=== PATIENT | male | born 1990 | race Caucasian/White ===

== ENCOUNTER 2017-03-02 22:23 | Inpatient (IN) | payer MEDICAID, OTHER ==
[~2017-03-02] VITALS: Ht 182.9 cm; Wt 91.6 kg
[~2017-03-02 22:23] MED LIST: BENZ1TAB10 PO; FLUO-191 PO; HALO10 PO; MIRT15 PO; TRAZ-147 PO
[2017-03-03 09:47] VITALS: BP 131/68
[2017-03-03] MEDS ORDERED: LORazepam 2 MG TABLET PO PRN (14:15)
[2017-03-03 16:17] VITALS: BP 128/64
[2017-03-03] MEDS: OLANZapine 5 MG TABLET PO SCH (20:26)
[2017-03-03] MEDS: ZOLPIDEM TARTRATE 10 MG TABLET PO PRN (20:27)
[2017-03-04] VITALS: BP 128/64
[2017-03-04] MEDS ORDERED: ACETAMINOPHEN 325 MG TABLET PO PRN (06:45)
[2017-03-04] MEDS: FLUoxetine HCL 20 MG CAPSULE PO SCH (09:45)
[2017-03-04 16:29] VITALS: BP 116/66
[2017-03-04] MEDS: ZOLPIDEM TARTRATE 10 MG TABLET PO PRN (20:55)
[2017-03-04] MEDS: OLANZapine 5 MG TABLET PO SCH (20:55)
[2017-03-05] VITALS (8 sets, daily range): BP systolic 118–139; BP diastolic 60–80
[2017-03-05] MEDS: IBUPROFEN 400 MG TABLET PO PRN (01:18)
[2017-03-05] MEDS: FLUoxetine HCL 20 MG CAPSULE PO SCH (09:38)
[2017-03-05] MEDS ORDERED: DiphenhydrAMINE HCL 50 MG/ML VIAL IM ONE (18:45)
[2017-03-05] MEDS ORDERED: HALOPERIDOL LACTATE 5 MG/ML VIAL IM ONE (18:45)
[2017-03-05] MEDS ORDERED: LORazepam 2 MG/ML VIAL IM ONE (18:45)
[2017-03-05] MEDS: OLANZapine 5 MG TABLET PO SCH (20:19)
[2017-03-06 06:30] VITALS: BP 120/64
[2017-03-06 08:27] VITALS: BP 116/62
[2017-03-06] MEDS: FLUoxetine HCL 20 MG CAPSULE PO SCH (09:42)
[2017-03-06 16:07] VITALS: BP 132/87
[2017-03-06] MEDS: OLANZapine 10 MG TABLET PO SCH (20:21)
[2017-03-06] MEDS: ZOLPIDEM TARTRATE 10 MG TABLET PO PRN (20:21)
[2017-03-06] MEDS: IBUPROFEN 400 MG TABLET PO PRN (20:30)
[2017-03-07 02:51] VITALS: BP 134/78
[2017-03-07] MEDS: HALOPERIDOL 5 MG TABLET PO PRN ×3 (03:43→16:20)
[2017-03-07] MEDS: IBUPROFEN 400 MG TABLET PO PRN ×2 (03:44→08:58)
[2017-03-07] MEDS ORDERED: BENZOCAINE 20% 11.9 GM GEL TP PRN (04:15)
[2017-03-07] MEDS: FLUoxetine HCL 20 MG CAPSULE PO SCH (08:55)
[2017-03-07 08:58] VITALS: BP 127/77
[2017-03-07] MEDS: ZOLPIDEM TARTRATE 10 MG TABLET PO PRN (20:33)
[2017-03-07] MEDS: OLANZapine 10 MG TABLET PO SCH (20:33)
[2017-03-08] MEDS: FLUoxetine HCL 20 MG CAPSULE PO SCH (08:36)
[2017-03-08] MEDS ORDERED: OLAN10TA3 PO (08:54)
== END 2017-03-08 15:21 | disposition home or self-care (01) | DRG 750 ==
LOC: EMS 22:24 → B2S 03-03 03:30 → B3A 03-05 20:17
PROVIDERS: ADMIT Psychiatry & Neurology Psychiatry; ATTEND Psychiatry & Neurology Psychiatry
DX: F25.0 Schizoaffective disorder, bipolar type (principal); R45.851 Suicidal ideations; F15.20 Other stimulant dependence, uncomplicated; R45.850 Homicidal ideations; F41.9 Anxiety disorder, unspecified; F60.3 Borderline personality disorder; F10.10 Alcohol abuse, uncomplicated; Z71.41 Alcohol abuse counseling and surveillance of alcoholic; Z71.51 Drug abuse counseling and surveillance of drug abuser; Z79.899 Other long term (current) drug therapy; Z98.890 Other specified postprocedural states; Z59.0 Homelessness; Z91.5 Personal history of self-harm; Z62.819 Personal history of unspecified abuse in childhood; Z81.8 Family history of other mental and behavioral disorders; Z82.49 Family history of ischemic heart disease and other diseases of the circulatory system
CPT/HCPCS: 99285; J1200; J1630; J2060

== ENCOUNTER 2017-03-15 19:35 | Inpatient (IN) | payer MEDICAID ==
[~2017-03-15] VITALS: Ht 185.4 cm; Wt 89.4 kg
[~2017-03-15 19:35] MED LIST changes: -BENZ1TAB10 PO; -HALO10 PO; -MIRT15 PO; +OLAN10TA3 PO; -TRAZ-147 PO
[2017-03-15 20:01] LABS: BASOPHILS # (AUTO) 0.05 K/uL (0.00-0.20); BASOPHILS % (AUTO) 0.7 % (0.0-2.0); EOSINOPHILS # (AUTO) 0.07 K/uL (0.00-0.70); EOSINOPHILS % (AUTO) 0.92 % (1.0-6.0); HEMATOCRIT 43.2 % (41-53); HEMOGLOBIN 14.2 g/dL (13.5-17.5); LYMPHOCYTES # (AUTO) 3.2 K/uL (1.0-4.8); LYMPHOCYTES % (AUTO) 43.8 % (22.0-44.0); MEAN CORPUSCULAR HGB CONC 32.9 G/dL (31.0-37.0); MEAN CORPUSCULAR VOLUME 88 fL (80-100); MONOCYTES # (AUTO) 0.6 K/uL (0.1-1.0); MONOCYTES % (AUTO) 8.3 % (2.0-9.0); NEUTROPHILS # (AUTO) 3.3 K/uL (1.8-7.7); NEUTROPHILS % (AUTO) 46.3 % (40.0-70.0); PLATELET COUNT (AUTO) 314 K/uL (150-450); RED BLOOD CELL COUNT(AUTO) 4.91 MIL/uL (4.50-5.90); RED CELL DISTRIBUTION WIDTH 14.1 % (11.5-14.5); WHITE BLOOD COUNT (AUTO) 7.2 K/uL (4.5-11.0)
[2017-03-15 20:11] LABS: ANION GAP 10 mmol/L (8-16); CALCIUM, TOTAL 8.9 mg/dL (8.8-10.5); CARBON DIOXIDE 26 mmol/L (22-29); CHLORIDE 102 mmol/L (98-107); CREATININE 0.76 mg/dL (0.60-1.30); GLOMERULAR FILTR. RATE CALC > 60 mL/min (>60); POTASSIUM 3.5 mmol/L (3.5-5.1); SODIUM SERUM 138 mmol/L (136-145); UREA NITROGEN, BLOOD 9 mg/dL (7-18)
[2017-03-15 20:17] LABS: ALANINE AMINOTRANSFERASE 81 U/L (12-78); ASPARTATE AMINOTRANSFERASE 32 U/L (15-37); BILIRUBIN,TOTAL 0.9 mg/dL (0.1-1.0); TOTAL PROTEIN, SERUM 7.7 g/dL (6.4-8.2)
[2017-03-15] MEDS ORDERED: LORazepam 2 MG/ML VIAL IM ONE (20:45)
[2017-03-15] MEDS ORDERED: DiphenhydrAMINE HCL 50 MG/ML VIAL IM ONE (20:45)
[2017-03-15] MEDS ORDERED: HALOPERIDOL LACTATE 5 MG/ML VIAL IM ONE (20:45)
[2017-03-15] MEDS ORDERED: ZOLPIDEM TARTRATE 10 MG TABLET PO PRN (21:00)
[2017-03-15 21:29] LABS: APPEARANCE,URINE CLEAR (CLEAR); GLUCOSE, URINE (UA) NEGATIVE (NEGATIVE); KETONES,URINE 15 mg/dL (NEGATIVE); LEUKOCYTE ESTERASE ,URINE NEGATIVE (NEGATIVE); OCCULT BLOOD,URINE NEGATIVE (NEGATIVE); PH,URINE 5.5 (5.0-8.0); PROTEIN,URINE NEGATIVE (NEGATIVE)
[2017-03-15 21:30] LABS: ADD UA MICROSCOPIC NO
[2017-03-15 23:23] VITALS: BP 129/89
[2017-03-16 05:59] VITALS: BP 102/52
[2017-03-16 08:14] VITALS: BP 80/53
[2017-03-16 12:47] VITALS: BP 93/55
[2017-03-16 17:24] VITALS: BP 100/58
[2017-03-16] MEDS ORDERED: IBUPROFEN 400 MG TABLET PO PRN (20:45)
[2017-03-17 04:02] VITALS: BP 101/65
[2017-03-17 08:29] LABS: HEMOGLOBIN A1C 4.8 % (4.5-6.2)
[2017-03-17 08:33] LABS: CHOL/HDL RATIO 2.4 (4.2-7.3); THYROID STIMULATING HORMONE 1.43 uIU/mL (0.36-3.74)
[2017-03-17 08:44] VITALS: BP 107/65
[2017-03-17] MEDS: FLUoxetine HCL 20 MG CAPSULE PO SCH (09:21)
[2017-03-17] MEDS: LORazepam 2 MG TABLET PO PRN (12:32)
[2017-03-17] MEDS: HALOPERIDOL 5 MG TABLET PO PRN (12:32)
[2017-03-17 16:32] VITALS: BP 118/68
[2017-03-17] MEDS: OLANZapine 10 MG TABLET PO SCH (21:24)
[2017-03-18] MEDS: FLUoxetine HCL 20 MG CAPSULE PO SCH (08:49)
[2017-03-18] MEDS: LORazepam 2 MG TABLET PO PRN (13:58)
[2017-03-18 16:00] VITALS: BP 120/66
[2017-03-18] MEDS: OLANZapine 10 MG TABLET PO SCH (20:31)
[2017-03-19] MEDS: FLUoxetine HCL 20 MG CAPSULE PO SCH (09:47)
[2017-03-19] MEDS: LORazepam 2 MG TABLET PO PRN ×2 (10:10→15:44)
[2017-03-19] MEDS: ACETAMINOPHEN 325 MG TABLET PO PRN (10:22)
[2017-03-19] MEDS: HALOPERIDOL 5 MG TABLET PO PRN (13:48)
[2017-03-19 16:19] VITALS: BP 107/76
[2017-03-19] MEDS: OLANZapine 10 MG TABLET PO SCH (20:45)
[2017-03-20 00:40] VITALS: BP 130/82
[2017-03-20] MEDS: LORazepam 2 MG TABLET PO PRN ×2 (05:03→11:49)
[2017-03-20] MEDS: FLUoxetine HCL 20 MG CAPSULE PO SCH (09:36)
[2017-03-20] MEDS: OLANZapine 10 MG TABLET PO SCH (20:36)
[2017-03-21] MEDS: LORazepam 2 MG TABLET PO PRN ×3 (00:03→16:07)
[2017-03-21 00:40] VITALS: BP 139/96
[2017-03-21 08:23] VITALS: BP 140/82
[2017-03-21] MEDS: ACETAMINOPHEN 325 MG TABLET PO PRN (08:24)
[2017-03-21] MEDS ORDERED: FLUoxetine HCL 20 MG CAPSULE PO SCH (09:00)
[2017-03-21 09:17] VITALS: BP 146/80
[2017-03-21 09:24] VITALS: BP 142/80
[2017-03-21 16:45] VITALS: BP 123/74
[2017-03-21] MEDS: HALOPERIDOL 5 MG TABLET PO PRN (18:03)
[2017-03-21] MEDS ORDERED: DiphenhydrAMINE HCL 50 MG/ML VIAL IM ONE (19:30)
[2017-03-21] MEDS ORDERED: LORazepam 2 MG/ML VIAL IM ONE (19:30)
[2017-03-21] MEDS ORDERED: HALOPERIDOL LACTATE 5 MG/ML VIAL IM ONE (19:30)
[2017-03-21] MEDS: OLANZapine 10 MG TABLET PO SCH (20:18)
[2017-03-22 06:01] VITALS: BP 133/77
[2017-03-22] MEDS: FLUoxetine HCL 20 MG CAPSULE PO SCH (09:30)
[2017-03-22] MEDS: LORazepam 2 MG TABLET PO PRN (15:57)
[2017-03-22 16:46] VITALS: BP 115/71
[2017-03-22] MEDS: HALOPERIDOL 5 MG TABLET PO PRN (18:05)
[2017-03-22] MEDS: OLANZapine 7.5 MG TABLET PO SCH (20:34)
[2017-03-23 00:46] VITALS: BP 124/76
[2017-03-23] MEDS: LORazepam 2 MG TABLET PO PRN ×3 (00:52→16:08)
[2017-03-23] MEDS: FLUoxetine HCL 20 MG CAPSULE PO SCH (10:03)
[2017-03-23 16:13] VITALS: BP 121/70
[2017-03-23] MEDS: HALOPERIDOL 5 MG TABLET PO PRN (17:06)
[2017-03-23] MEDS: OLANZapine 7.5 MG TABLET PO SCH (20:37)
[2017-03-24 04:54] VITALS: BP 125/65
[2017-03-24 08:16] VITALS: BP 104/63
[2017-03-24] MEDS: FLUoxetine HCL 20 MG CAPSULE PO SCH (09:14)
[2017-03-24] MEDS: HALOPERIDOL 5 MG TABLET PO PRN (09:49)
[2017-03-24] MEDS ORDERED: FLUO-191 PO (10:24)
[2017-03-24] MEDS ORDERED: OLAN7.5T2 PO (10:24)
== END 2017-03-24 13:25 | disposition home or self-care (01) | DRG 750 ==
LOC: EMS 19:36 → B2S 21:27
PROVIDERS: ADMIT Psychiatry & Neurology Psychiatry; ATTEND Psychiatry & Neurology Psychiatry
PROC: HZ37ZZZ Individual Counseling for Substance Abuse Treatment, Motivational Enhancement (ICD-10-PCS; principal; 2017-03-17)
DX: F25.0 Schizoaffective disorder, bipolar type (principal); F15.20 Other stimulant dependence, uncomplicated; R45.851 Suicidal ideations; F60.3 Borderline personality disorder; R45.850 Homicidal ideations; F17.200 Nicotine dependence, unspecified, uncomplicated; F10.10 Alcohol abuse, uncomplicated; F19.10 Other psychoactive substance abuse, uncomplicated; R45.87 Impulsiveness; Z79.899 Other long term (current) drug therapy; Z59.0 Homelessness; Z82.49 Family history of ischemic heart disease and other diseases of the circulatory system; Z71.41 Alcohol abuse counseling and surveillance of alcoholic; Z71.51 Drug abuse counseling and surveillance of drug abuser; Z91.5 Personal history of self-harm; Z81.8 Family history of other mental and behavioral disorders
CPT/HCPCS: 83036; 84443; 87081; 96372; 99285; G0480; J1200; J1630; J2060